=== PATIENT | female | born 1980 | race African-American/Black ===

== ENCOUNTER 2024-12-12 14:50 | Emergency (ER) | payer OTHER ==
[2024-12-12] MEDS ORDERED: NA CHLORIDE 0.9% 1,000 ML ONE (14:57)
[2024-12-12 15:31] LABS: Absolute Eosinophils 0.1 K/uL (0-0.5); Absolute Lymphocytes (CBC) 2.6 K/uL (0.7-4.9); Absolute Monocytes 0.6 K/uL (0.1-1.3); Absolute Neutrophil 4.2 K/uL (1.8-8.0); Basophils % 0.4 % (0-1.3); Eosinophils % 0.9 % (0-4.4); Hematocrit 34.9 % (36.0-45.0); Hemoglobin 12.1 g/dL (12.0-15.0); Lymphocytes % 34.5 % (15.3-44.8); MCH 27.8 pg (27.0-35.0); MCHC 34.7 g/dL (32.0-36.0); MCV 80.2 fL (80-100); MPV 9.8 fL (7.6-11.3); Monocytes % 8.4 % (3.3-12.3); Neutrophils % 55.8 % (41.7-73.7); Nucleated Red Blood Cells % 0.1 % (0-0); Platelets 202 thou/uL (152-406); RBC Red Blood Cell Count 4.35 M/uL (3.86-4.86); Red Cell Distribution Width 15.5 % (12.1-15.2)
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
[2024-12-12 15:42] LABS: Anion Gap 11.6 mEq/L (5.0-15.0); Potassium 3.6 mEq/L (3.5-5.1)
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
--- NOTE | 2024-12-12 17:45 | RAD REPORT ---
Exam:Knee Right 2 View HISTORY: Right knee pain FINDINGS: Limited two-view series. No fracture or dislocation seen If the patient continues to have symptoms to suggest an occult fracture, ligamentous or meniscal inju ry then MRI would be recommended
[2024-12-12 18:06] VITALS: TEMP 97.6; O2SAT 98
[2024-12-12 18:07] VITALS: BP 112/65
== END 2024-12-12 17:40 | disposition home or self-care (01) ==
LOC: ER 14:50
DX: S09.90XA Unspecified injury of head, initial encounter (principal); S40.211A Abrasion of right shoulder, initial encounter; S30.1XXA Contusion of abdominal wall, initial encounter; V68.5XXA Driver of heavy transport vehicle injured in noncollision transport accident in traffic accident, initial encounter; E11.9 Type 2 diabetes mellitus without complications; I10 Essential (primary) hypertension; Z95.818 Presence of other cardiac implants and grafts; Z79.01 Long term (current) use of anticoagulants
CPT/HCPCS: 85025; 80048; 36415; 86900; 86850; 86901; 70450; 72125; 71260; 74177; 73560; 99284; Q9967; J7030